=== PATIENT | male | born 1995 | race African-American/Black ===

== ENCOUNTER 2020-12-13 08:19 | Emergency (ER) | payer OTHER ==
[~2020-12-13] VITALS: Ht 170.2 cm; Wt 77.6 kg
[2020-12-13] MEDS ORDERED: ACETAMINOPHEN 500 MG TAB PO ONE (09:50)
[2020-12-13] MEDS ORDERED: CYCLOBENZAPRINE 5MG TABLET PO ONE (09:50)
[2020-12-13] MEDS ORDERED: KETOROLAC 30 MG/ML 1ML VIAL IM ONE (09:50)
[2020-12-13] MEDS ORDERED: IBUP-1022 PO (09:54)
[2020-12-13] MEDS ORDERED: CYCL5TAB PO (09:54)
[2020-12-13] MEDS ORDERED: ACET-683 PO (09:54)
[2020-12-13] MEDS ORDERED: OXYCODONE/APAP 5MG/325MG(BULK FOR ED) 1 TABLET PO ONE (10:55)
[2020-12-13 11:03] VITALS: BP 111/64
== END 2020-12-13 11:11 | disposition home or self-care (01) ==
LOC: M ED 08:19
DX: M54.5 Low back pain (principal); M79.605 Pain in left leg
CPT/HCPCS: 96372; 99283; J1885